=== PATIENT | male | born 1960 | race Caucasian/White ===

== ENCOUNTER 2018-07-06 15:38 | Inpatient (IN) | payer OTHER ==
[~2018-07-06] VITALS: Ht 167.6 cm; Wt 55.0 kg
[2018-07-06 15:42] VITALS: Ht 167.6 cm; Wt 55.0 kg
[2018-07-06 17:26] LABS: BASOPHIL % 0.4 % (0-2); RED CELL DISTRIBUTION WIDTH 12.6 % (11.5-14.5)
[2018-07-06 17:28] LABS: PLATELET COUNT 401 x10^3mcL (130-400)
[2018-07-06 17:31] LABS: CALCIUM 9.3 mg/dL (8.5-10.1); CARBON DIOXIDE 28.9 mmol/L (21-32); CREATININE SERUM 1.4 mg/dL (0.7-1.3); POTASSIUM SERUM 4.3 mmol/L (3.5-5.1)
[2018-07-06 17:38] LABS: BILIRUBIN TOTAL 0.3 mg/dL (0.20-1.00)
[2018-07-06 17:38] LABS: microscopic required? YES; urine erythrocyte TRACE (NEGATIVE)
[2018-07-06 17:40] LABS: ALBUMIN 3.3 g/dL (3.4-5.0); TOTAL PROTEIN, SERUM 8.3 g/dL (6.4-8.2)
[2018-07-06 18:53] VITALS: BP 150/94
[2018-07-07 00:02] VITALS: BP 136/68
[2018-07-07 06:08] VITALS: BP 141/78
[2018-07-07 06:54] LABS: BASOPHIL % 0.7 % (0-2); PLATELET COUNT 343 x10^3mcL (130-400); RED CELL DISTRIBUTION WIDTH 12.8 % (11.5-14.5)
[2018-07-07 08:32] LABS: AST/SGOT 11 U/L (15-37); CALCIUM 8.5 mg/dL (8.5-10.1); CHLORIDE SERUM 105 mmol/L (98-107); GFR1 > 60 mL/min; TOTAL PROTEIN, SERUM 6.4 g/dL (6.4-8.2)
[2018-07-07 08:48] LABS: ALKALINE PHOSPHATASE 71 U/L (46-116); ALT/SGPT 15 U/L (16-63); BILIRUBIN TOTAL 0.34 mg/dL (0.20-1.00); CARBON DIOXIDE 21.6 mmol/L (21-32); CREATININE SERUM 1.1 mg/dL (0.7-1.3); GLUCOSE SERUM 173 mg/dL (74-106)
[2018-07-07 08:59] LABS: ALBUMIN 2.5 g/dL (3.4-5.0)
[2018-07-07 09:00] LABS: SODIUM SERUM 152 mmol/L (136-145)
[2018-07-07 09:40] VITALS: BP 123/66
[2018-07-07 17:22] VITALS: BP 143/75
[2018-07-07 20:26] VITALS: BP 152/76
[2018-07-08 05:22] VITALS: BP 151/85
[2018-07-08 06:36] LABS: BASOPHIL % 0.6 % (0-2); PLATELET COUNT 403 x10^3mcL (130-400); RED CELL DISTRIBUTION WIDTH 12.5 % (11.5-14.5)
[2018-07-08 06:47] LABS: CARBON DIOXIDE 22.5 mmol/L (21-32); CHLORIDE SERUM 105 mmol/L (98-107); CREATININE SERUM 0.9 mg/dL (0.7-1.3); GFR1 > 60 mL/min; GLUCOSE SERUM 159 mg/dL (74-106); POTASSIUM SERUM 4.3 mmol/L (3.5-5.1); SODIUM SERUM 140 mmol/L (136-145)
[2018-07-08 08:36] VITALS: BP 156/79
[2018-07-08 17:05] VITALS: BP 150/85
[2018-07-08 20:18] VITALS: BP 134/74
[2018-07-09 05:48] VITALS: BP 154/85
[2018-07-09 06:16] LABS: BASOPHIL % 0.7 % (0-2); RED CELL DISTRIBUTION WIDTH 13.1 % (11.5-14.5)
[2018-07-09 06:22] LABS: CALCIUM 8.5 mg/dL (8.5-10.1); CARBON DIOXIDE 26.2 mmol/L (21-32); CHLORIDE SERUM 104 mmol/L (98-107); CREATININE SERUM 0.9 mg/dL (0.7-1.3); GFR1 > 60 mL/min; GLUCOSE SERUM 212 mg/dL (74-106); MAGNESIUM 1.8 mg/dL (1.8-2.4); POTASSIUM SERUM 4.6 mmol/L (3.5-5.1); SODIUM SERUM 136 mmol/L (136-145)
[2018-07-09 07:05] LABS: PLATELET COUNT 443 x10^3mcL (130-400)
[2018-07-09 08:16] VITALS: BP 115/66
[2018-07-09] MEDS ORDERED: GLU5 PO (12:23)
[2018-07-09] MEDS ORDERED: AMOXICILLIN/CLA1 TA6 PO (12:24)
[2018-07-09] MEDS ORDERED: CLEOCIN HCL300 MG PO (12:24)
[2018-07-09 13:00] VITALS: BP 115/66
== END 2018-07-09 15:06 | disposition home or self-care (01) | DRG 383 ==
LOC: ED 15:38 → MU 18:04
PROVIDERS: Emergency Medicine; Internal Medicine Pulmonary Disease
DX: L03.114 Cellulitis of left upper limb (principal); N17.9 Acute kidney failure, unspecified; E87.0 Hyperosmolality and hypernatremia; E11.65 Type 2 diabetes mellitus with hyperglycemia; E86.0 Dehydration
CPT/HCPCS: 82962; 83880; 90658; J0295; J1815; J1885; J2270; J3370; J3490; J7030

== ENCOUNTER 2018-11-23 07:23 | Day surgery (SDC) | payer OTHER ==
[~2018-11-23] VITALS: Ht 167.6 cm; Wt 59.0 kg
[~2018-11-23 07:23] MED LIST: AMOXICILLIN/CLA1 TA6 PO; CLEOCIN HCL300 MG PO; GLU5 PO
[2018-11-23 07:51] VITALS: BP 157/82
[2018-11-23 11:25] VITALS: BP 124/67
== END 2018-11-23 11:10 | disposition home or self-care (01) ==
LOC: GI 07:23 → OR 10:30 → GI 11:10
PROVIDERS: Internal Medicine Gastroenterology
PROC: 0DJD8ZZ Inspection of Lower Intestinal Tract, Via Natural or Artificial Opening Endoscopic (ICD-10-PCS; principal; 2018-11-23 09:30)
DX: Z12.11 Encounter for screening for malignant neoplasm of colon (principal); K64.8 Other hemorrhoids
CPT/HCPCS: 45378; J1200; J1610; J2250; J2310; J3010; J3490

== ENCOUNTER 2020-06-19 08:18 | Emergency (ER) | payer OTHER ==
[~2020-06-19] VITALS: Ht 165.1 cm; Wt 55.8 kg
[2020-06-19 08:45] VITALS: Ht 165.1 cm; Wt 55.8 kg
[2020-06-19 09:44] LABS: BASOPHIL % 0.5 % (0-2); PLATELET COUNT 368 x10^3mcL (130-400)
[2020-06-19 09:49] LABS: RED CELL DISTRIBUTION WIDTH 14.7 % (11.5-14.5)
[2020-06-19 10:02] LABS: ALKALINE PHOSPHATASE 65 U/L (46-116); ALT/SGPT 16 U/L (16-63); AST/SGOT 14 U/L (15-37); BILIRUBIN TOTAL 0.3 mg/dL (0.20-1.00); CALCIUM 8.9 mg/dL (8.5-10.1); CARBON DIOXIDE 22.2 mmol/L (21-32); CHLORIDE SERUM 110 mmol/L (98-107); GFR1 > 60 mL/min; POTASSIUM SERUM 4.5 mmol/L (3.5-5.1); SODIUM SERUM 141 mmol/L (136-145); TOTAL PROTEIN, SERUM 7.3 g/dL (6.4-8.2)
[2020-06-19 10:35] LABS: ALBUMIN 3.2 g/dL (3.4-5.0)
[2020-06-19 10:39] LABS: GLUCOSE SERUM 52 mg/dL (74-106)
[2020-06-19 11:54] VITALS: BP 147/72
== END 2020-06-19 11:54 | disposition home or self-care (01) ==
LOC: ED 08:18
PROVIDERS: Emergency Medicine
DX: E11.621 Type 2 diabetes mellitus with foot ulcer (principal); L97.529 Non-pressure chronic ulcer of other part of left foot with unspecified severity
CPT/HCPCS: Q0092

== ENCOUNTER 2020-09-07 13:06 | Inpatient (IN) | payer OTHER ==
[~2020-09-07] VITALS: Ht 165.1 cm; Wt 569.7 kg
[2020-09-07 13:12] VITALS: Ht 165.1 cm; Wt 569.7 kg
--- NOTE | 2020-09-07 13:14 | NUR ---
PT AMBULATED TO ED LOBBY, PT AWAITING ED BED, NO ACUTE DISTRESS NOTED.
--- NOTE | 2020-09-07 15:24 | NUR ---
PT AMBULATED INTO TRIAGE FOR VS. NO SIGNS OF DISTRESS NOTED AT THIS TIME.
--- NOTE | 2020-09-07 16:20 | NUR ---
PT SITTING IN CHAIR AT BEDSIDE, AAOX4 WITH C/O 8/10 PAIN TO LT FOOT SINCE LAST NIGHT S/P ULCER FORMATION 2 WEEKS AGO. PT STATING PAIN INCREASED LAST NIGHT WITH SWELLING TO FOOT NOTED THIS AM. PT STATES HE WAS SEEN HERE FOR SAME PROBLEM WITH NO RELIEF OF SYMPTOMS WITH RX/MEDS GIVEN. PT NOTED WITH DRY ULCER TO BOTTOM OF LT FOOT WITH SWELLING TO FOOT. PT DENIES ANY FEVER, RESP ILLNESS, N/V/D/C, OR URINARY PROBLEMS AT THIS TIME.
[2020-09-07 16:53] LABS: BASOPHIL % 0.3 % (0-2); PLATELET COUNT 298 x10^3mcL (130-400); RED CELL DISTRIBUTION WIDTH 13.4 % (11.5-14.5)
[2020-09-07 17:01] LABS: CALCIUM 9.2 mg/dL (8.5-10.1); CARBON DIOXIDE 26.1 mmol/L (21-32); CREATININE SERUM 1.4 mg/dL (0.7-1.3); POTASSIUM SERUM 4.3 mmol/L (3.5-5.1)
[2020-09-07 17:06] LABS: ALBUMIN 3.2 g/dL (3.4-5.0); BILIRUBIN TOTAL 0.66 mg/dL (0.20-1.00); TOTAL PROTEIN, SERUM 7.6 g/dL (6.4-8.2)
--- NOTE | 2020-09-07 19:09 | NUR ---
PT SITTING IN CHAIR AT BEDSIDE WAITING FOR FAMILY TO BRING HIM FOOD. OK TO EAT PER DR. PADRON.
--- NOTE | 2020-09-07 20:00 | NUR ---
SPOKE WITH PT AT LENGTH REGARDING HIS FRUSTRATIONS DURING THIS ER VISIT. PT IN AGREEMENT WITH PLAN OF ADMISSION AT THIS TIME, CONCERNS AND QUESTIONS ANSWERED. SANDWICH AND MILK GIVEN TO PT PER REQUEST, OK PER DR PADRON.
--- NOTE | 2020-09-07 20:34 | NUR ---
ASSISTED PT BACK INTO [facility]. BLANKETS GIVEN FOR COMFORT. PT HAS NO COMPLAINTS AT THIS TIME. WILL CONTINUE TO MONITOR. AWAITING BED FOR ADMISSION. VSS.
--- NOTE | 2020-09-07 22:22 | NUR ---
PT AWAKE, RESTING IN GURNEY. RESP E/U, NAD NOTED. PT DENIES PAIN. NO ACUTE CHANGES IN PT CONDITION AT THIS TIME. PT C/O ER BEING NOISY, COLD AND HARD TO SLEEP. DECAF HOT TEA GIVEN PER PT REQUEST.
--- NOTE | 2020-09-08 00:41 | NUR ---
REC'D PT FROM ED VIA VALERIY ACCOMPANIED BY RN. PT ADM WITH CC CHILLS AT NIGHT S/P ULCER ON FOOT. L FOOT PLANTAR ULCER 0.9X0.9 CM WITH YELLOW/BROWN WOUND BED. CLEANSED WITH NS, PATTED DRY, AND OBTAINED WOUND CX. NO DRAINAGE NOTED. 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 AAOX4, SPEECH CLEAR, FOLLOWS COMMADNS. TELE 23. DENIES CP, DIZZINESS, OR PALPITATIONS. DENIES RESP DISTRESS OR SOB. BREATHING EVEN/UNLABORED ON RA. ABD SOFT/ROUND. DENIES ABD PAIN, TENDERNESS, OR N/V. VOIDING FREELY. AMBULATORY. LLE TRACE EDEMA AND LLE WARM TO TOUCH. IV TO LFA, SITE WNL. TEMP 101.0, BP 163/87, HR 102. PRIMARY RN SUNIL NOTIFIED. CALL LIGHT WITHIN REACH, BED AT LOWEST POSITION. ORIENTED TO DEVICES AND SURROUNDINGS.
[2020-09-08 00:45] VITALS: BP 163/87
--- NOTE | 2020-09-08 01:00 | NUR ---
PHONED REGARDING PT HIGH BLOOD PRESSURE.163/87.
--- NOTE | 2020-09-08 01:32 | NUR ---
RECEIVED PHONE CALL FROM DR. ADAMES. AWARE OF PT HIGH BP. PER MD ORDER CLONIDINE 0.1MG Q4 HOUR PRN.
--- NOTE | 2020-09-08 02:54 | NUR ---
PT TEMP:101. COOLING PADS USED TO COOL ON BOTH AXILLARY. MEDICATION TYLENOL PO GIVEN. PT TEMP DOMN TO 99.1. WILL CONTINUE TO REASSESS AND MONITOR PT.
[2020-09-08 04:59] VITALS: BP 137/71
--- NOTE | 2020-09-08 07:03 | NUR ---
PT RESTING IN BED. TEMP FROM 101 DROP TO 98. PT DENIES CHEST PAIN OR DISCOMFORT AT THIS TIME. SAFETY MEASURES IN PLACE. WILL ENDORSE CARE TO DAY SHIFT RN.
[2020-09-08 07:12] LABS: PLATELET COUNT 287 x10^3mcL (130-400); RED CELL DISTRIBUTION WIDTH 12.7 % (11.5-14.5)
[2020-09-08 07:28] LABS: CALCIUM 8.8 mg/dL (8.5-10.1); CARBON DIOXIDE 25.8 mmol/L (21-32); CHLORIDE SERUM 104 mmol/L (98-107); CREATININE SERUM 1.2 mg/dL (0.7-1.3); GFR1 > 60 mL/min; GLUCOSE SERUM 261 mg/dL (74-106); POTASSIUM SERUM 3.8 mmol/L (3.5-5.1); SODIUM SERUM 138 mmol/L (136-145)
--- NOTE | 2020-09-08 07:30 | NUR ---
RECEIVED PT BY BEDSIDE, PT WAS SLEEPING AROUSABLE TO VERBAL STIMULI. A/Ox4. DENIES ANY PAIN AND SOB THIS TIME. TRACE EDEMA ON LLE AND SMALL WOUND NOTED ON BOTTOM OF FOOT AT LLE WITH DISCHARGE. SCABS NOTED ON ANTERIOR OF RIGHT LEG. IV SITE RUNNING NS 80ml/hr LFA 20g. WILL DOCUMENT SHIFT ASSESSMENT. SAFETY PRECAUTIONS IN PLACE. CALL LIGHT WITHIN REACH. WILL CONTINUE TO MONITOR.
[2020-09-08 07:57] LABS: BASOPHIL % 0 % (0-2)
[2020-09-08 08:21] VITALS: BP 90/61
--- NOTE | 2020-09-08 09:30 | NUR ---
REPAIR CAMERAMAN REPORTED THAT SHE CHANGED [facility] PT's DRESSING. SHE APPLIED A BETADINE DRESSING TO THE SITE. I WAS INSTRUCTED NOT TO TOUCH IT TODAY.
--- NOTE | 2020-09-08 11:30 | NUR ---
SPOKE TO PT's DAUGHTER AND UPDATED HER ON PT's STATUS. GAVE PHONE TO PT WHEN DONE SO THEY COULD SPEAK TOGETHER. PT IS STILL STABLE, NO COMPLAINTS OF SOB OR PAIN. CALL LIGHT WITHIN REACH. WILL CONTINUE TO MONITOR.
[2020-09-08 11:55] VITALS: BP 156/78
--- NOTE | 2020-09-08 15:11 | NUR ---
PT STATES HE IS DOING GOOD. NO PAIN AND SOB THIS TIME. PT STATED SOMEONE CHECKED HIS LEFT FOOT WOUND AND REMOVED DRESSING BUT DIDN'T REPLACE IT. CLEANED WOUND AND PLACED NEW DRESSING PER WOUND CARE INSTRUCTIONS.
--- NOTE | 2020-09-08 16:00 | NUR ---
WOUND CARE NOTE: PT. ADMITTED WITH LEFT FOOT DIABETIC ULCER. LEFT HALLUX PLANTAR ASPECT FULL THICKNESS DEHISCENCE LESION ON DORSAL MEDIAL ASPECT WITH 1X1X0.3CM WITH 100% RED GRANULAR BASE. MILD HYPERKERATOTIC BORDERS. NO ODOR, SMALL AMOUNT SEROSANGENOUS DRAINAGE,LISSET-WOUND SKIN INTACT. NO EDEMA TO DORSAL FOOT. POC DISCUSSED WITH PT. AND PRIMARY RN. PT. VERBALIZES UNDERSTANDING. RECOMMENDATIONS: -PODIATRY CONSULT -PENDING WOUND CULTURE -CLEANSE LEFT HALLUX PLANTAR AREA WITH NS, APPLY SOAKED BETADINE 2X2 GUAZE AND COVER WITH DRY DRESSING QD AND PRN IF SOILING
--- NOTE | 2020-09-08 16:30 | NUR ---
NEW IV PLACED ON RIGHT AC 20g WITH HELP FROM ANIMAL NUTRITION CONSULTANT. DISCONTINUED L FOREARM IV BECAUSE OF SWELLING ON HAND. IV IS INTACT
[2020-09-08 17:26] VITALS: BP 141/73
--- NOTE | 2020-09-08 18:00 | NUR ---
PT IS RELAXED, DENIES ANY PAIN AND SOB. LEFT FOOT WOUND DRESSING IS INTACT. PT DENIES ANY PAIN AND SOB. RIGHT AC IV IS RUNNNING 50ml/hr NS. SAFETY PRECAUTIONS IN PLACE. CALL LIGHT WITHIN REACH. WILL ENDORSE CAR ETO SENIOR INVESTMENT MANAGER RN
--- NOTE | 2020-09-08 19:30 | NUR ---
RECEIVED PT IN BED AWAKE, ALERT, ORIENTED X4. HE IS WATCHING TV. HE HAS NO C/O PAIN OR DISCOMFORT AT THIS TIME. RT FOOT PLANTER ULCER W/ DRESSING CDI. PT STATED HE IS ABLE TO WALK. W/ IVF NS AT 80 CC/HR VIA RTAC. CALL LIGHT W/IN REACH.
[2020-09-08 20:28] VITALS: BP 129/67
--- NOTE | 2020-09-09 02:21 | NUR ---
PT APPEARS TO BE SLEEPING COMFORTABLY.
[2020-09-09 05:34] VITALS: BP 156/84
--- NOTE | 2020-09-09 05:59 | NUR ---
PT SLEPT IN LONG INTERVALS. HE HAD NO C/O PAIN. DRESSING TO LT FOOT REMAINS CDI. PT ABLE TO AMBULATE . IVF NS INFUSING WELL AT 80 CC/HR VIA RTAC. ALL NEEDS ATTENDED TO.
--- NOTE | 2020-09-09 07:30 | NUR ---
RECEIVED PT IN NO ACUTE DISTRESS. AAOX4. RESP EVEN AND UNLABORED ON RA. IV WITH NO REDNESS OR SWELLING NOTED. DENIES PAIN. DRESSING TO LEFT FOOT C/D/I. LLE ELEVATED WITH PILLOW. PULSES PALPABLE ON ALL EXTREMITIES. BED IN LOW POSITION, CALL LIGHT WITHIN REACH. WILL CONTINUE TO MONITOR.
[2020-09-09 08:00] VITALS: BP 103/77; BP 116/80
[2020-09-09 08:03] LABS: BASOPHIL % 0.9 % (0-2); PLATELET COUNT 341 x10^3mcL (130-400); RED CELL DISTRIBUTION WIDTH 12.1 % (11.5-14.5)
[2020-09-09 08:06] LABS: CALCIUM 8.7 mg/dL (8.5-10.1); CARBON DIOXIDE 25.9 mmol/L (21-32); CHLORIDE SERUM 106 mmol/L (98-107); CREATININE SERUM 0.9 mg/dL (0.7-1.3); GFR1 > 60 mL/min; GLUCOSE SERUM 165 mg/dL (74-106); POTASSIUM SERUM 4.3 mmol/L (3.5-5.1); SODIUM SERUM 140 mmol/L (136-145)
[2020-09-09 12:02] VITALS: BP 153/84
--- NOTE | 2020-09-09 12:15 | NUR ---
PT RESTING IN BED. NO ACUTE DISTRESS. GIVEN POST-OP SHOE FOR LEFT FOOT. DRESSING TO LEFT FOOT C/D/I. REMINDED PT THAT FRONT PART OF LEFT FOOT IS NWB. PT VERBALIZED UNDERSTANDING. IV WITH NO REDNESS OR SWELLING. CALL LIGHT WITHIN REACH. WILL CONTINUE TO MONITOR.
[2020-09-09 15:52] VITALS: BP 142/74
--- NOTE | 2020-09-09 15:58 | NUR ---
Initial Nutrition Assessment: 241 A TRISHA WEINSTEIN 60M HR Dx: Left Diabetic Foot Infection, s/p foot ulcer PMHx: T2DM PSHx: no noted Labs: (09/09) BG 165H, BUN 23.0H, RBC 3.8L, H/H 11.2/34L, Lymph% 24.9L *Cr WNL (09/07) Cr 1.4H, ALB 3.2L, AST 8L, ALK 73H, (07/07/18) HbA1C 14.1H Meds: Sodium CHL, Humulin R, Vancocin, Rocephin, Lovenox, Potassium CHL, Klor-Con, Catapres, Ambien, Zofran, Vancomycin Diet: CCHO 60 gms PO intake since admission: (09/08) B: 80%, L: 100%, D: 100%, (09/09) B: 100%, average 95% x 4 meals Ht: 165 cm/65 in Wt: 569.71 kg/1256 lbs BMI: 209 kg/m2 Bed scale: 62 kg/137 lbs IBW: 62 kg/136 lbs %IBW: 924% UBW: 61 kg/135 lbs (2 months ago) Age: 60 y/o Food Allergies: none per pt Edema: LLE trace edema Last BM: 09/08 Skin: dressing to Left Foot C/D/I Lance: 20 Per H and P (09/08): This is a 60-year-old male past medical history significant for type 2 diabetes, presented to ED with left foot pain and swelling for greater than 3 weeks. Patient reports similar episodes where he was given antibiotics and eventually lost to follow-up. Otherwise patient reports fever/chills and increased swelling since yesterday. Denies chest pain, shortness of breath, abdominal pain, nausea/vomiting, diarrhea/constipation, headache/dizziness and urinary symptoms. In ED patient was afebrile, hypertensive SBP 170s. ED work-up patient had left foot x-ray which was negative for acute fracture/dislocation/signs of osteomyelitis. Minimal soft tissue swelling. Laboratory work-up revealed acute kidney injury, hyperglycemia. Leukocytosis with left shift. Covid negative. Patient started on empiric IV antibiotics and admitted for further evaluation/treatment. Pt was admitted with dx: Left diabetic foot infection, Leukocytosis with left shift, Hypertension-uncontrolled, Acute kidney injury, Type [address] Note (09/09): Per progress note (09/09) pt s/p debridement procedure. During visit, pt was comfortable resting in bed, awake, alert, and verbally responsive. He reported having a good appetite and tolerating his meals well. Pt denied any n/v/d/c today or any chewing/swallowing difficulties. Pt denied any recent weight changes and UBW is 61 kg/135 lbs (2 months ago). Pt does not take any vitamin/supplement at home, and he does not practice any physical activity. Pt's bed scale weight reported 62 kg (BMI 22.8 kg/m2) versus 569.71 kg recorded in pt's chart. Additionally, pt's PO intake average is 95% meeting 100% of his nutritional needs. 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 Explained portions of carbohydrates and provided examples. Explained how to read food label for carbohydrate counting. Written material: "Carbohydrate Counting for People with Diabetes," and "Diabetes Label Readings Tips" from [facility] were provided to pt and he acknowledge understanding. Food-drug interactions? Education given? n/a Estimated Nutritional Needs Based on ideal body weight (62 kg) Energy: 1550 - 1860 kcal/day (25 - 30 kcal/kg for infection) Protein: 75 - 93 g/day (1.2 - 1.5 g/kg for infection and ulcer) Fluid: 1550 - 1860 mL/day (1 mL/kcal) Nutrition Diagnosis: 1. Increased energy and protein needs r/t infection and wound a/e/b pt was admitted for left diabetic foot infection, s/p debridement. 2. Altered nutrition lab values r/t uncontrolled diabetes a/e/b) BG 165H and HbA1C 14.1H (07/07/18). 3. Food and nutrition related knowledge deficit r/t no prior diabetes education a/e/b pt stated he never heard about carbohydrates before. Intervention 1. Recommend continue with [facility] diet as tolerate. Monitor/Evaluate Goal: PO intake at least 75% of estimated needs Monitor: PO intake, Labs, GI function, Body Weight F/U in 3-5 days as moderate risk 09/12-
--- NOTE | 2020-09-09 15:59 | NUR ---
1. Recommend continue with CCHO diet as tolerate.
--- NOTE | 2020-09-09 18:28 | NUR ---
PT SITTING UP ON THE SIDE OF THE BED EATING DINNER. NO ACUTE DISTRESS. AAOX4. RESP EVEN AND UNLABORED ON RA. NO C/O PAIN. DRESSING TO LEFT FOOT C/D/I. POST OP SHOE TO LEFT FOOT. IV WITH NO REDNESS OR SWELLING. BED IN LOW POSITION, CALL LIGHT WITHIN REACH. WILL ENDORSE TO ONCOMING SHIFT.
--- NOTE | 2020-09-09 19:24 | NUR ---
RECIEVED PT FROM DAY SHIFT NURSE. PT RESTING IN BED. RR EVEN AND UNLABORED. A&O X4. LFA IV CDI AND INFUSING NS @ 80ML/HR. BED LOCKED AND LOWERED. FALL PRECAUTIONS IN PLACE. CALL LIGHT WITHIN REACH. WILL CONTINUE WITH PLAN OF CARE.
--- NOTE | 2020-09-09 22:37 | NUR ---
PAGED DR. BETTENCOURT D/T PT B/P OF 174/105. PT HAS BEEN TRENDING SBP 140-15 AND DBP 70-80. PT HAS NOT PMH OF HTN. WAITING ON DR CALL BACK FOR ORDERS.
[2020-09-09 23:00] VITALS: BP 174/105
--- NOTE | 2020-09-09 23:05 | NUR ---
SPOKE WITH DR SG GARCIAING PT B/P. DR ADVISED TO CONTINUE TO MONITOR B/P AND ADMIN PRN CLONIDINE.
[2020-09-10 01:07] VITALS: BP 152/82
--- NOTE | 2020-09-10 04:58 | NUR ---
PT SLEEPING IN BED. RR EVEN AND UNLABORED. NO ADN. BED LOCKED AND LOWERED. CALL LIGHT WITHIN REACH. WILL CONTINUE TO MONITOR.
[2020-09-10 06:01] VITALS: BP 142/87
[2020-09-10 07:20] LABS: CALCIUM 8.5 mg/dL (8.5-10.1); CARBON DIOXIDE 27.4 mmol/L (21-32); CHLORIDE SERUM 106 mmol/L (98-107); GFR1 > 60 mL/min; GLUCOSE SERUM 178 mg/dL (74-106); SODIUM SERUM 141 mmol/L (136-145)
[2020-09-10 08:35] LABS: BASOPHIL % 1.4 % (0-2); PLATELET COUNT 332 x10^3mcL (130-400); RED CELL DISTRIBUTION WIDTH 11.9 % (11.5-14.5)
[2020-09-10 09:00] VITALS: BP 153/75
--- NOTE | 2020-09-10 09:57 | NUR ---
PATIENT IS AOX4, RESPIRATIONS EVEN AND UNLABORED ON ROOM AIR. DENIES PAIN. IV FLUIDS INFUSING. LEFT FOOT WITH DRESSING CLEAN DRY INTACT, ELEVATED. UPDATED PT ON PLAN OF CARE. WILL CONTINUE TO MONITOR.
[2020-09-10 12:36] VITALS: BP 155/72
[2020-09-10] MEDS ORDERED: CLINDAMYCIN300 M1 PO (14:05)
[2020-09-10 14:47] VITALS: BP 155/72
--- NOTE | 2020-09-10 16:06 | NUR ---
DIETITIAN CO-SIGN The Nutrition Notes documented by the Adon have been reviewed. Reviewed/Co-Signed by: Heath Hugo Documentation Done by: Destiny Chairez
--- NOTE | 2020-09-10 17:41 | NUR ---
SPOKE TO DAUGHTER ALESSANDRA WEINSTEIN, EXPLAINED DISCHARGE INSTRUCTIONS REGARDING MEDICATIONS, AND FOLLOW UP APPOINTMENTS. PT AND DAUGHTER VERBALIZED UNDERSTANDING. IV REMOVED WITH CATHETER TIP INTACT. ESCORTED TO LOBBY IN WHEELCHAIR PICKED UP BY TIMMY APARICIO
== END 2020-09-10 17:21 | disposition home health service (06) | DRG 380 ==
LOC: ED 13:06 → DU 19:26
PROVIDERS: Emergency Medicine; ADMIT Internal Medicine; ATTEND Internal Medicine
PROC: 0JBR0ZZ Excision of Left Foot Subcutaneous Tissue and Fascia, Open Approach (ICD-10-PCS; principal; 2020-09-09)
DX: E11.621 Type 2 diabetes mellitus with foot ulcer (principal); L97.529 Non-pressure chronic ulcer of other part of left foot with unspecified severity; N17.9 Acute kidney failure, unspecified; E11.42 Type 2 diabetes mellitus with diabetic polyneuropathy; E11.65 Type 2 diabetes mellitus with hyperglycemia; D72.829 Elevated white blood cell count, unspecified; I10 Essential (primary) hypertension; B35.1 Tinea unguium; Z20.828 Contact with and (suspected) exposure to other viral communicable diseases; Z91.19 Patient's noncompliance with other medical treatment and regimen; M20.22 Hallux rigidus, left foot; M20.42 Other hammer toe(s) (acquired), left foot; M20.41 Other hammer toe(s) (acquired), right foot
CPT/HCPCS: 82962; 90658; G0378; J0696; J1650; J3370; J7030; J7060